=== PATIENT | male | born 1990 | race Hispanic/Latino ===

== ENCOUNTER 2024-06-05 14:54 | Observation (INO) | payer SELFPAY ==
[2024-06-05] VITALS (18 sets, daily range): BP systolic 73–140; BP diastolic 30–82
[~2024-06-05] VITALS: Ht 170.2 cm; Wt 79.0 kg
[2024-06-05] MEDS ORDERED: SODIUM CHLORIDE 0.9% 1,000 ML IV ONE (16:20)
[2024-06-05] MEDS ORDERED: Pantoprazole Sodium 40 MG VIAL (Protonix) IV ONE (16:35)
[2024-06-05] MEDS ORDERED: KETOROLAC TROMETHAMINE 30 MG/ML SDV IV ONE (16:35)
[2024-06-05] MEDS ORDERED: ONDANSETRON HCl 4 MG/2 ML SDV IV ONE (16:35)
[2024-06-05] MEDS ORDERED: FAMOTIDINE 10MG/ML 2ML SDV IV ONE (16:35)
[2024-06-05 16:54] LABS: BASO% 0.1 % (0-3); EOS% 0.1 % (0-8); HEMATOCRIT 46.6 % (39.0-50.0); HEMOGLOBIN 15.8 g/dl (14.0-18.0); IMMATURE GRANULOCYTES 0.2 % (0.0-5.0); LYMPH% 8.6 % (15-41); MEAN CELL VOLUME 75.9 fL CALC (80.0-100.0); MEAN CORPUSCULAR HGB 25.7 pG CALC (26.0-32.0); MEAN CORPUSCULAR HGB CONC 33.9 g/dL CAL (32.0-36.0); MONO% 1.3 % (2-13); NEUT# 11.41 thou/uL (1.82-7.42); NEUT% 89.7 % (42-76); RED BLOOD COUNT 6.14 mill/uL (4.70-6.10); RED CELL DISTRI WIDTH 12.8 % (11.5-15.5)
[2024-06-05 17:04] LABS: ALBUMIN 5.6 g/dL (3.2-5.0); BILIRUBIN, TOTAL 1.6 mg/dL (0.2-1.3); POTASSIUM 4.3 mmol/l (3.5-5.1)
[2024-06-05] MEDS ORDERED: MORPHINE SULFATE 4 MG/ML VIAL IV ONE (17:20)
[2024-06-05] MEDS ORDERED: HYDROmorphone HCL 2 MG/AMP IV PRN (19:45)
[2024-06-05] MEDS ORDERED: SODIUM CHLORIDE 0.9% 1,000 ML IV PRN (19:45)
[2024-06-05] MEDS ORDERED: ONDANSETRON HCl 4 MG/2 ML SDV IV PRN (19:50)
[2024-06-05 20:54] LABS: URINE BLOOD DIPSTICK Negative (NEGATIVE); URINE COLOR Yellow; URINE GLUCOSE - DIPSTICK Negative (NEGATIVE); URINE KETONE >=160 mg/dL (NEGATIVE); URINE LEUK ESTERASE Negative (NEGATIVE); URINE NITRITE - DIPSTICK Negative (Negative); URINE PROTEIN - DIPSTICK 30 mg/dL (NEG-TRACE); URINE UROBILINOGEN - DIPSTICK 0.2 E.U./dL (0.2)
[2024-06-05 20:55] LABS: URINE RBC 0-2 RBC/hpf (0-5); URINE WBC 0-2 WBC/hpf (0-5)
[2024-06-06] MEDS ORDERED: KETOROLAC TROMETHAMINE 15 MG/ML SDV IV SCH
[2024-06-06 04:12] VITALS: BP 129/75
[2024-06-06 04:44] VITALS: BP 129/75
[2024-06-06 07:02] VITALS: BP 113/62
[2024-06-06 07:16] VITALS: BP 113/62
[2024-06-06 11:37] VITALS: BP 136/86
== END 2024-06-06 14:52 | disposition home or self-care (01) | DRG 390 ==
LOC: ED 14:54 → ED-I 18:32 → ED 18:47 → MS2 18:48
PROVIDERS: Family Medicine; ADMIT Surgery; ATTEND Surgery
DX: K56.609 Unspecified intestinal obstruction, unspecified as to partial versus complete obstruction (principal); Z90.49 Acquired absence of other specified parts of digestive tract
CPT/HCPCS: G0378; J2470; Q9967